=== PATIENT | female | born 1980 | race Native Hawaiian/Other Pacific Islander ===

== ENCOUNTER 2024-06-09 09:33 | Day surgery (SDC) | payer OTHER ==
[2024-06-09] VITALS (28 sets, daily range): BP systolic 108–166; BP diastolic 71–110; PULSE 63–78; TEMP 98.4; O2SAT 93–98
[~2024-06-09] VITALS: Ht 162.6 cm; Wt 111.4 kg
[2024-06-09] MEDS ORDERED: 1/2 NS 1,000 ML IV SCH (10:00)
[2024-06-09 11:05] LABS: HEMOGLOBIN 14.9 g/dl (12.5-16.0); MEAN CELL VOLUME 82 fl (80.0-100.0); MEAN CORPUSCULAR HEMOGLOBIN 28 pg (27-31); MEAN CORPUSCULAR HGB CONC 34 g/dl (33.0-37.0); MEAN PLATELET VOLUME 11.2 fl (7.4-10.4); PLATELET COUNT 255 K/mm3 (130-400); RED BLOOD COUNT 5.37 M/mm3 (4.10-5.30); REDCELL DISTRIBUTION WIDTH-CV 12.7 % (11.5-14.5)
[2024-06-09 11:12] LABS: INR 1.1 (0.8-3.0); PROTHROMBIN TIME 12.2 SECONDS (9.7-12.8)
[2024-06-09 11:15] LABS: PARTIAL THROMBOPLASTIN TIME 39.3 SECONDS (26.0-37.0)
[2024-06-09 11:20] LABS: CALCIUM 9.6 mg/dL (8.4-10.2); CREATININE, serum 0.84 mg/dL (0.57-1.11)
[2024-06-09] MEDS ORDERED: TRULICITY0.75 MG/0. SQ (11:23)
[2024-06-09] MEDS ORDERED: GLUCOPHAGE500 MG/TAB PO (11:24)
--- NOTE | 2024-06-09 11:28 | NUR ---
Patient to procedure,report to Joaquin<Rn.
--- NOTE | 2024-06-09 11:35 | NUR ---
Pt to procedure,report to ANALY Nuñez.
--- NOTE | 2024-06-09 12:04 | NUR ---
See [facility] report for procedural sedation/notes
[2024-06-09] MEDS ORDERED: Heparin 1,000 UNITS/ML 10 ML Multi-Dose VIAL IV SCH (12:07)
[2024-06-09] MEDS ORDERED: Nitroglycerin 100 MCG/ML (Cath Lab) 10 ML VIAL IA SCH (12:09)
[2024-06-09] MEDS ORDERED: Verapamil 2.5 MG/ML 2 ML VIAL IA SCH (12:10)
[2024-06-09] MEDS ORDERED: Midazolam 2 MG/2 ML VIAL IV SCH (12:11)
[2024-06-09] MEDS ORDERED: fentaNYL 50 MCG/ML 2 ML VIAL IV SCH (12:11)
[2024-06-09] MEDS ORDERED: Iohexol 350 - 100 ML VIAL INCOR ONE (12:12)
--- NOTE | 2024-06-09 12:44 | NUR ---
Pt returned from procedure.Patient resting with eyes closed,respirations even and unlaobred.pt did open eyes to this nurse and follow instructions,answered questions to this nurse.Right radial site observed clean,dry,intact and soft.Will continue to monitor.
--- NOTE | 2024-06-09 15:00 | NUR ---
Right radial site had observed bleeding after air removed at this time.%ml of air replaced back into the band.Will continue to monitor.Patient resting in bed, at bedside.
--- NOTE | 2024-06-09 17:23 | NUR ---
All air released from radial band in 2-3 ml incriments.Right radial site observed clean,dry,and soft to touch at this time.Discharge instructions given to pt.Pt verbalizes understanding.
--- NOTE | 2024-06-09 17:56 | NUR ---
Patient escorted out via wheelchair by this nurse.
== END 2024-06-09 17:58 ==
LOC: COL.CAR 09:33
PROVIDERS: Internal Medicine Cardiovascular Disease
DX: I25.10 Atherosclerotic heart disease of native coronary artery without angina pectoris (principal)
CPT/HCPCS: J1644; J2250; J3010; Q9967